=== PATIENT | female | born 1980 | race Caucasian/White ===

== ENCOUNTER 2019-05-28 18:48 | Emergency (ER) | payer BC, OTHER ==
[~2019-05-28] VITALS: Ht 162.6 cm; Wt 77.5 kg
[~2019-05-28 18:48] MED LIST: CLIN300C PO; MAPA500T17 PO; NICO4LOZ8 PO
[2019-05-28 18:49] VITALS: BP 138/78
[2019-05-28] MEDS ORDERED: ALEV220T22 PO (18:56)
[2019-05-28] MEDS ORDERED: IBUP80TA PO (19:24)
[2019-05-28] MEDS ORDERED: ACETAMINOPHEN 325 MG TAB PO ONE (19:30)
--- NOTE | 2019-05-28 19:39 | REP ---
Clinical: Trauma. Technique: AP, lateral, bilateral oblique views of the left ankle. Findings: Diffuse soft tissue swelling is appreciated. No obvious acute fracture dislocation. Ankle mortise intact. Lateral view demonstrates moderate calcaneal heal spur. Impression: Soft-tissue swelling. No obvious acute fracture or dislocation. If the patient remains symptomatic consider reevaluation in 3-5 days. Electronically Signed by Roland Small MD 05/28/2019 07:30 P
== END 2019-05-28 19:37 | disposition home or self-care (01) ==
LOC: M ED 18:48
DX: S93.402A Sprain of unspecified ligament of left ankle, initial encounter (principal); V00.181A Fall from other rolling-type pedestrian conveyance, initial encounter; Y92.009 Unspecified place in unspecified non-institutional (private) residence as the place of occurrence of the external cause; Y93.9 Activity, unspecified; G89.29 Other chronic pain; M54.9 Dorsalgia, unspecified; Z79.899 Other long term (current) drug therapy

== ENCOUNTER → 2021-07-07 | Outpatient (CLI) | payer BC ==
[~2021-07-07] MED LIST changes: +ALEV220T22 PO; +IBUP80TA PO
[2021-07-07 13:19] LABS: BASO # 0.1 10^3/uL (0.0-0.2); BASO % 1.4 % (0.0-1.0); EOS # 0.1 10^3/uL (0.0-0.5); EOS % 2.5 % (0.0-3.0); HEMOGLOBIN 10.4 g/dl (12.0-15.5); LYMPH # 0.9 10^3/uL (1.5-5.0); LYMPH % 19.9 % (24.0-44.0); MEAN CORPUSCULAR HEMOGLOBIN 23.1 pg (27.0-33.0); MEAN CORPUSCULAR HGB CONC 30.6 g/dl (32.0-36.5); MEAN CORPUSCULAR VOLUME 75.4 fl (80.0-96.0); MONO # 0.4 10^3/uL (0.0-0.8); MONO % 9.9 % (2.0-8.0); NEUTROPHILS # 2.9 10^3/uL (1.5-8.5); NEUTROPHILS % 66.1 % (36.0-66.0); PLATELET COUNT, AUTOMATED 316 10^3/uL (150-450); RED BLOOD COUNT 4.51 10^6/uL (4.00-5.40); WHITE BLOOD COUNT 4.4 10^3/uL (4.0-10.0)
[2021-07-07 13:40] LABS: HEMOGLOBIN A1c 5.2 %
[2021-07-07 13:58] LABS: ALBUMIN 3.5 GM/DL (3.2-5.2); ALT/SGPT 61 U/L (12-78); BILIRUBIN,TOTAL 0.3 MG/DL (0.2-1.0); BLOOD UREA NITROGEN 4 MG/DL (7-18); CALCIUM LEVEL 8.9 MG/DL (8.5-10.1); CARBON DIOXIDE LEVEL 28 MEQ/L (21-32); CHLORIDE LEVEL 105 MEQ/L (98-107); CHOLESTEROL LEVEL 214 MG/DL (<200); CHOLESTEROL RISK RATIO 2.038 (<5); CREATININE FOR GFR 0.73 MG/DL (0.55-1.30); FREE T4 0.85 NG/DL (0.76-1.46); GLOMERULAR FILTRATION RATE > 60.0 (>60); GLUCOSE, FASTING 83 MG/DL (70-100); HDL CHOLESTEROL 105 MG/DL (>40); LDL CHOLESTEROL 89 MG/DL (<100); NON-HDL-C 109 MG/DL; POTASSIUM SERUM 3.9 MEQ/L (3.5-5.1); SODIUM LEVEL 139 MEQ/L (136-145); TOTAL PROTEIN 7.9 GM/DL (6.4-8.2); TRIGLYCERIDES LEVEL 102 MG/DL (<150)
== END ==
LOC: M PLALAB 10:18
PROVIDERS: ATTEND Student in an Organized Health Care Education/Training Program
DX: Z13.1 Encounter for screening for diabetes mellitus (principal); R53.83 Other fatigue; Z79.899 Other long term (current) drug therapy

== ENCOUNTER → 2022-04-26 | Outpatient (CLI) | payer BC ==
[2022-04-26 12:35] LABS: BASO # 0.1 10^3/uL (0.0-0.2); BASO % 1.2 % (0.0-1.0); EOS # 0.2 10^3/uL (0.0-0.5); EOS % 4.3 % (0.0-3.0); HEMATOCRIT 34.7 % (36.0-47.0); LYMPH % 18.6 % (24.0-44.0); MEAN CORPUSCULAR HEMOGLOBIN 21.5 pg (27.0-33.0); MEAN CORPUSCULAR HGB CONC 28.8 g/dl (32.0-36.5); MEAN CORPUSCULAR VOLUME 74.6 fl (80.0-96.0); MONO # 0.6 10^3/uL (0.0-0.8); MONO % 12.4 % (2.0-8.0); NEUTROPHILS # 3.3 10^3/uL (1.5-8.5); NEUTROPHILS % 63.3 % (36.0-66.0); PLATELET COUNT, AUTOMATED 296 10^3/uL (150-450); RED BLOOD COUNT 4.65 10^6/uL (4.00-5.40); WHITE BLOOD COUNT 5.2 10^3/uL (4.0-10.0)
[2022-04-26 12:59] LABS: FERRITIN 11.4 NG/ML (7.3-270.7); PERCENT SATURATION 2.6 % (13.2-45.0)
== END ==
LOC: M LAB 12:03
PROVIDERS: ATTEND Student in an Organized Health Care Education/Training Program
DX: D50.9 Iron deficiency anemia, unspecified (principal)

== ENCOUNTER → 2022-10-02 | Outpatient (CLI) | payer BC, OTHER | LOC: M SOG 09:32 | PROVIDERS: ATTEND Physician Assistant | DX: S82.142A Displaced bicondylar fracture of left tibia, initial encounter for closed fracture (principal); S83.231A Complex tear of medial meniscus, current injury, right knee, initial encounter ==

== ENCOUNTER → 2022-10-05 | Outpatient (CLI) | payer MEDICAID | LOC: M OUTALCOH 09:27 | PROVIDERS: ATTEND Psychiatry & Neurology Psychiatry | DX: F10.10 Alcohol abuse, uncomplicated (principal) ==

== ENCOUNTER → 2022-11-01 | Outpatient (RCR) | payer MEDICAID | LOC: M OUTALCOH 10-13 09:57 | PROVIDERS: ATTEND Psychiatry & Neurology Psychiatry | DX: F10.20 Alcohol dependence, uncomplicated (principal); F12.20 Cannabis dependence, uncomplicated ==

== ENCOUNTER → 2022-12-01 | Outpatient (RCR) | payer MEDICAID | LOC: M OUTALCOH 11-08 14:43 | PROVIDERS: ATTEND Psychiatry & Neurology Psychiatry | DX: F10.20 Alcohol dependence, uncomplicated (principal); F12.10 Cannabis abuse, uncomplicated ==

== ENCOUNTER 2022-12-04 13:37 | Outpatient (RCR) | payer MEDICAID | END 2023-01-01 | LOC: M OUTALCOH 13:37 | PROVIDERS: ATTEND Psychiatry & Neurology Psychiatry | DX: F10.20 Alcohol dependence, uncomplicated (principal); F12.10 Cannabis abuse, uncomplicated ==

== ENCOUNTER → 2024-04-04 | Outpatient (CLI) | payer OTHER ==
[2024-04-04 18:30] LABS: THYROID STIMULATING HORMONE 3.272 uIU/ML (0.55-4.78)
[2024-04-04 18:31] LABS: FREE T4 1.16 NG/DL (0.89-1.76)
== END ==
LOC: M PLALAB 15:40
PROVIDERS: ATTEND Obstetrics & Gynecology Obstetrics
DX: N93.9 Abnormal uterine and vaginal bleeding, unspecified (principal)

== ENCOUNTER 2024-08-14 08:11 | Inpatient (IN) | payer MEDICAID, OTHER ==
[~2024-08-14] VITALS: Ht 157.5 cm; Wt 44.7 kg
[2024-08-14] MEDS ORDERED: AMOX875T2 PO (08:24)
[2024-08-14 10:10] LABS: HEMATOCRIT 29.6 % (36.0-47.0); HEMOGLOBIN 9.3 g/dl (12.0-15.5); MEAN CORPUSCULAR HEMOGLOBIN 23.2 pg (27.0-33.0); MEAN CORPUSCULAR HGB CONC 31.4 g/dl (32.0-36.5); MEAN CORPUSCULAR VOLUME 73.8 fl (80.0-96.0); PLATELET COUNT, AUTOMATED 516 10^3/uL (150-450); RED BLOOD COUNT 4.01 10^6/uL (4.00-5.40); WHITE BLOOD COUNT 13.7 10^3/uL (4.0-10.0)
[2024-08-14] MEDS: KETOROLAC 30 MG/ML 1ML VIAL IV ONE (10:15)
[2024-08-14 10:38] LABS: AMPHETAMINES LEVEL URINE NEGATIVE (NEGATIVE); BARBITURATES URINE NEGATIVE (NEGATIVE); BENZODIAZEPINES URINE NEGATIVE (NEGATIVE); COCAINE METABOLITE URINE NEGATIVE (NEGATIVE); METHADONE URINE NEGATIVE (NEGATIVE); OPIATES URINE NEGATIVE (NEGATIVE); PHENCYCLIDINE URINE NEGATIVE (NEGATIVE)
[2024-08-14 10:40] LABS: ETHYL ALCOHOL (ETHANOL) 0.004 % (0.000-0.010)
[2024-08-14 10:42] LABS: CANNABINOIDS URINE POSITIVE (NEGATIVE)
[2024-08-14 10:42] LABS: ALBUMIN 3.8 G/DL (3.2-5.2); ALKALINE PHOSPHATASE 60 U/L (35-104); ALT/SGPT 12 U/L (7.0-40); AST/SGOT 14 U/L (<34); BILIRUBIN,DIRECT 0.2 MG/DL (<0.4); BILIRUBIN,TOTAL 0.7 MG/DL (0.3-1.2); BLOOD UREA NITROGEN 13 MG/DL (9-23); CALCIUM LEVEL 9.2 MG/DL (8.5-10.1); CARBON DIOXIDE LEVEL 22 MMOL/L (20-31); CHLORIDE LEVEL 101 MMOL/L (98-107); GLOMERULAR FILTRATION RATE > 60.0 (>58); GLUCOSE, FASTING 145 MG/DL (60-100); POTASSIUM SERUM 3.7 MMOL/L (3.5-5.1); SALICYLATE LEVEL < 3.0 MG/DL (<30); SODIUM LEVEL 136 MMOL/L (136-145); TOTAL PROTEIN 7.7 G/DL (5.7-8.2)
[2024-08-14 10:44] LABS: THYROID STIMULATING HORMONE 1.064 uIU/ML (0.55-4.78)
[2024-08-14 10:49] LABS: HCG, SERUM QUALITATIVE NEGATIVE (NEGATIVE)
[2024-08-14] MEDS: PIPERACILLIN/TAZOBACTAM SOD 3.375 GM in DEXTROSE 5% (D5W) ADV/MINI-BAG 50 ML IV ONE (12:56)
[2024-08-14] MEDS ORDERED: HYDR-3363 PO (13:15)
[2024-08-14] MEDS ORDERED: HOME MED LIST COMPLETE! XX SCH (13:45)
[2024-08-14] MEDS ORDERED: MOM 30ML SUSPENSION UDC PO PRN (18:40)
[2024-08-14] MEDS ORDERED: MAALOX 30 ML SUSP *UDC PO PRN (18:40)
[2024-08-14] MEDS ORDERED: traZODone 50 MG TAB PO PRN (18:40)
[2024-08-14 18:47] VITALS: BP 131/73; TEMP 97.6; O2SAT 100
[2024-08-14] MEDS: IBUPROFEN 400MG TAB PO PRN (19:00)
[2024-08-14] MEDS ORDERED: AUGMENTIN 500MG TAB PO SCH (21:00)
[2024-08-14] MEDS: KETOROLAC TROMETHAMINE 10 MG TAB PO ONE (21:37)
[2024-08-14] MEDS: AUGMENTIN 500MG TAB PO SCH (21:37)
[2024-08-15 07:00] VITALS: BP 110/64; TEMP 97.1; O2SAT 100
[2024-08-15] MEDS: NICOTINE 21MG/24HR 1 EA TRANSDERMAL TD SCH (08:35)
[2024-08-15] MEDS: diphenhydrAMINE 25MG CAP PO PRN (08:35)
[2024-08-15] MEDS: ACETAMINOPHEN 325 MG TAB PO PRN (11:26)
[2024-08-15] MEDS ORDERED: KETOROLAC 30 MG/ML 1ML VIAL IV PRN (16:15)
[2024-08-15 16:49] VITALS: BP 108/61; TEMP 98.2; O2SAT 98
[2024-08-15] MEDS: PRAZOSIN 1 MG CAP PO SCH (20:46)
[2024-08-15] MEDS: SERTRALINE HCL 25 MG TABLET PO SCH (20:46)
[2024-08-15] MEDS: KETOROLAC TROMETHAMINE 10 MG TAB PO PRN (20:46)
[2024-08-16 03:46] VITALS: BP 88/53; TEMP 99.6; O2SAT 98
[2024-08-16] MEDS ORDERED: ONDANSETRON 4MG ORAL DISINTEGRATING TAB PO PRN (03:50)
[2024-08-16 04:33] LABS: BASO # 0.1 10^3/uL (0.0-0.2); BASO % 0.7 % (0.0-1.0); EOS # 0.2 10^3/uL (0.0-0.5); EOS % 1.7 % (0.0-3.0); HEMATOCRIT 30.1 % (36.0-47.0); HEMOGLOBIN 9.4 g/dl (12.0-15.5); LYMPH # 1.6 10^3/uL (1.5-5.0); LYMPH % 17.9 % (24.0-44.0); MEAN CORPUSCULAR HGB CONC 31.2 g/dl (32.0-36.5); MEAN CORPUSCULAR VOLUME 73.6 fl (80.0-96.0); MONO % 11.3 % (2.0-8.0); NEUTROPHILS # 6.1 10^3/uL (1.5-8.5); NEUTROPHILS % 68.1 % (36.0-66.0); PLATELET COUNT, AUTOMATED 509 10^3/uL (150-450); RED BLOOD COUNT 4.09 10^6/uL (4.00-5.40)
[2024-08-16 06:37] VITALS: BP 122/68; TEMP 96.9; O2SAT 99
[2024-08-16] MEDS: LACTOBACILLUS ACIDOPHILUS CAP (BACID) PO SCH (08:15)
[2024-08-16 15:31] VITALS: BP 132/72; TEMP 98; O2SAT 100
[2024-08-16 20:39] VITALS: BP 132/72
[2024-08-16] MEDS: SERTRALINE HCL 50 MG TAB PO SCH (20:39)
[2024-08-17 06:51] VITALS: BP 138/79; TEMP 97.4; O2SAT 98
[2024-08-17] MEDS ORDERED: AMOX875T2 PO (09:19)
[2024-08-18] MEDS ORDERED: HYDR-3363 PO (09:30)
[2024-08-18] MEDS ORDERED: TRAZ1TAB12 PO (09:30)
== END 2024-08-17 08:00 | disposition still patient (30) | DRG 755 ==
LOC: M ED 08:11 → M ED INP 17:36 → M PSY 18:09 → UNDODISIN 08-17 07:49
PROVIDERS: ADMIT Psychiatry & Neurology Psychiatry; ATTEND Psychiatry & Neurology Psychiatry
DX: F43.10 Post-traumatic stress disorder, unspecified (principal); F41.9 Anxiety disorder, unspecified; F10.10 Alcohol abuse, uncomplicated; N75.0 Cyst of Bartholin's gland; L40.9 Psoriasis, unspecified; F17.290 Nicotine dependence, other tobacco product, uncomplicated

== ENCOUNTER 2024-08-17 10:59 | Inpatient (IN) | payer OTHER ==
[~2024-08-17] VITALS: Ht 157.5 cm; Wt 44.7 kg
[~2024-08-17 10:59] MED LIST changes: +AMOX875T2 PO; +HYDR-3363 PO
[2024-08-17] MEDS ORDERED: diphenhydrAMINE 25MG CAP PO PRN (11:10)
[2024-08-17] MEDS ORDERED: MOM 30ML SUSPENSION UDC PO PRN (11:10)
[2024-08-17] MEDS: NICOTINE 21MG/24HR 1 EA TRANSDERMAL TD PRN (12:17)
[2024-08-17] MEDS: ACETAMINOPHEN 325 MG TAB PO PRN (12:27)
[2024-08-17 12:47] VITALS: BP 116/61; TEMP 98; O2SAT 97
[2024-08-17 15:36] VITALS: BP 122/63; TEMP 97.7; O2SAT 98
[2024-08-17] MEDS: IBUPROFEN 400MG TAB PO PRN (16:59)
[2024-08-17] MEDS: traZODone 50 MG TAB PO PRN (22:15)
[2024-08-18 06:59] VITALS: BP 100/62; TEMP 98; O2SAT 96
[2024-08-18] MEDS ORDERED: HOME MED LIST COMPLETE! XX SCH (09:20)
[2024-08-18] MEDS: OLANZapine 5 MG TAB PO PRN (09:26)
[2024-08-18] MEDS ORDERED: TRAZ1TAB12 PO (09:30)
[2024-08-18] MEDS ORDERED: HYDR-3363 PO (09:30)
[2024-08-18 17:26] VITALS: BP 130/64; TEMP 98; O2SAT 100
[2024-08-18] MEDS: AUGMENTIN 875 MG TAB PO SCH (21:49)
[2024-08-18] MEDS: SERTRALINE HCL 50 MG TAB PO SCH (21:49)
[2024-08-18] MEDS: PRAZOSIN 1 MG CAP PO SCH (21:58)
[2024-08-19 07:11] VITALS: BP 115/61; TEMP 97.4; O2SAT 99
[2024-08-19 17:12] VITALS: BP 128/79; TEMP 98; O2SAT 98
[2024-08-20 06:35] VITALS: BP 125/60; TEMP 97.1; O2SAT 98
[2024-08-20 15:04] VITALS: BP 115/74; TEMP 98.5; O2SAT 99
[2024-08-21 06:29] VITALS: BP 109/59; TEMP 97.5; O2SAT 97
[2024-08-21 16:29] VITALS: BP 110/73; TEMP 97.6; O2SAT 99
[2024-08-21 20:23] VITALS: BP 126/81
[2024-08-22] MEDS: MAALOX 30 ML SUSP *UDC PO PRN (00:55)
[2024-08-22 06:42] VITALS: BP 127/58; TEMP 97.6; O2SAT 99
[2024-08-22] MEDS ORDERED: PRAZ1CAP PO (09:22)
[2024-08-22] MEDS ORDERED: TRAZ1TAB12 PO (09:22)
[2024-08-22] MEDS ORDERED: SERT50TA29 PO (09:22)
[2024-08-22] MEDS ORDERED: HYDR-3363 PO (09:22)
[2024-08-22] MEDS ORDERED: AMOX875T2 PO (09:22)
[2024-08-22] MEDS ORDERED: HYDR-643 PO (09:22)
[2024-08-22] MEDS ORDERED: NICO21PAT TD (09:22)
== END 2024-08-22 14:11 | disposition home or self-care (01) | DRG 755 ==
LOC: M PSY 11:39
PROVIDERS: ADMIT Psychiatry & Neurology Psychiatry; ATTEND Psychiatry & Neurology Psychiatry
DX: F43.10 Post-traumatic stress disorder, unspecified (principal); F41.9 Anxiety disorder, unspecified; F10.10 Alcohol abuse, uncomplicated; F17.290 Nicotine dependence, other tobacco product, uncomplicated; Z79.899 Other long term (current) drug therapy

== ENCOUNTER 2024-08-28 08:37 | Inpatient (IN) | payer OTHER ==
[~2024-08-28] VITALS: Ht 157.5 cm; Wt 50.7 kg
[~2024-08-28 08:37] MED LIST changes: +HYDR-643 PO; +NICO21PAT TD; +PRAZ1CAP PO; +SERT50TA29 PO; +TRAZ1TAB12 PO
[2024-08-28] MEDS ORDERED: ACET650T61 PO (08:48)
[2024-08-28 10:09] LABS: BASO # 0.1 10^3/uL (0.0-0.2); BASO % 0.4 % (0.0-1.0); EOS % 0.1 % (0.0-3.0); HEMATOCRIT 34.1 % (36.0-47.0); HEMOGLOBIN 10.6 g/dl (12.0-15.5); LYMPH # 1.8 10^3/uL (1.5-5.0); LYMPH % 8.9 % (24.0-44.0); MEAN CORPUSCULAR HGB CONC 31.1 g/dl (32.0-36.5); MEAN CORPUSCULAR VOLUME 74.1 fl (80.0-96.0); MONO # 0.9 10^3/uL (0.0-0.8); MONO % 4.7 % (2.0-8.0); NEUTROPHILS # 16.8 10^3/uL (1.5-8.5); NEUTROPHILS % 85.4 % (36.0-66.0); PLATELET COUNT, AUTOMATED 423 10^3/uL (150-450); WHITE BLOOD COUNT 19.6 10^3/uL (4.0-10.0)
[2024-08-28 10:13] LABS: KETONE, URINE AUTO RFX NEGATIVE (NEGATIVE); LEUKOCYTE ESTERASE UR AUTO RFX NEGATIVE (NEGATIVE); MUCUS, URINE RFX SMALL (NEGATIVE); NITRITE, URINE AUTO RFX NEGATIVE (NEGATIVE); RBC, URINE AUTO RFX 0 /HPF (0-3); SQUAM EPITHELIAL CELL UR AURFX 4 /HPF (0-6); WBC, URINE AUTO RFX 0 /HPF (0-3)
[2024-08-28 10:31] LABS: LIPASE 28 U/L (12-53)
[2024-08-28 10:33] LABS: ALBUMIN 3.5 G/DL (3.2-5.2); ALKALINE PHOSPHATASE 59 U/L (35-104); ALT/SGPT 15 U/L (7.0-40); AST/SGOT 11 U/L (<34); BILIRUBIN,DIRECT 0.1 MG/DL (<0.4); BILIRUBIN,TOTAL 0.4 MG/DL (0.3-1.2); BLOOD UREA NITROGEN 9 MG/DL (9-23); CALCIUM LEVEL 9.1 MG/DL (8.5-10.1); CARBON DIOXIDE LEVEL 28 MMOL/L (20-31); CHLORIDE LEVEL 104 MMOL/L (98-107); CREATININE FOR GFR 0.55 MG/DL (0.55-1.30); GLOMERULAR FILTRATION RATE > 60.0 (>58); GLUCOSE, FASTING 110 MG/DL (60-100); POTASSIUM SERUM 4.4 MMOL/L (3.5-5.1); SODIUM LEVEL 138 MMOL/L (136-145); TOTAL PROTEIN 7.5 G/DL (5.7-8.2)
[2024-08-28 11:21] LABS: HCG, SERUM QUALITATIVE NEGATIVE (NEGATIVE)
[2024-08-28] MEDS: NS (Normal Saline) 0.9% 1,000 ML IV ONE (12:13)
[2024-08-28] MEDS ORDERED: ISOVUE-370 76% 100ML VIAL As Ordered ONE (12:32)
[2024-08-28] MEDS: GASTROGRAFIN SOLUTION 30ML PO SCH (12:46)
[2024-08-28] MEDS: PIPERACILLIN/TAZOBACTAM SOD 3.375 GM in DEXTROSE 5% (D5W) ADV/MINI-BAG 50 ML IV ONE (15:46)
[2024-08-28] MEDS ORDERED: ZOLO50TA PO (16:23)
[2024-08-28] MEDS ORDERED: HYDR-643 PO (16:23)
[2024-08-28] MEDS ORDERED: TRAZ-257 PO (16:23)
[2024-08-28] MEDS ORDERED: HOME MED LIST COMPLETE! XX SCH (16:25)
[2024-08-28] MEDS ORDERED: KETOROLAC 30 MG/ML 1ML VIAL As Ordered ONE (17:20)
[2024-08-28] MEDS ORDERED: dexmedeTOMIDine (4MCG/ML)200MCG/50ML BTL (PRECEDEX) As Ordered ONE (17:20)
[2024-08-28] MEDS ORDERED: LIDOCAINE 2% 100MG/5ML SDV (FOR ANES.) As Ordered ONE (17:20)
[2024-08-28] MEDS ORDERED: ACETAMINOPHEN 1000MG/100ML IV BAG As Ordered ONE (17:20)
[2024-08-28] MEDS ORDERED: fentaNYL 100 MCG/2 ML INJECTION As Ordered ONE (17:20)
[2024-08-28] MEDS ORDERED: ROCURONIUM BROMIDE 50MG/5ML VIAL As Ordered ONE (17:21)
[2024-08-28] MEDS ORDERED: SUGAMMADEX SODIUM 500 MG/5 ML VIAL (BRIDION) As Ordered ONE (17:21)
[2024-08-28] MEDS ORDERED: propofoL 200 MG/20 ML VIAL As Ordered ONE (17:21)
[2024-08-28] MEDS ORDERED: MIDAZOLAM INJ 2MG/2ML VIAL As Ordered ONE (17:21)
[2024-08-28] MEDS ORDERED: ONDANSETRON 4MG 2ML VIAL As Ordered ONE (17:21)
[2024-08-28] MEDS ORDERED: METOCLOPRAMIDE INJ 10MG/2ML VIAL As Ordered ONE (17:21)
[2024-08-28] MEDS ORDERED: oxyCODONE 5MG TAB PO PRN (18:00)
[2024-08-28] MEDS ORDERED: fentaNYL 100 MCG/2 ML INJECTION IV PRN (18:00)
[2024-08-28] MEDS ORDERED: MORPHINE 2 MG/ML 1ML VIAL IV PRN ×3 (18:00)
[2024-08-28] MEDS ORDERED: MORPHINE 4 MG/ML 1ML VIAL IV PRN (18:00)
[2024-08-28] MEDS ORDERED: ONDANSETRON 4MG 2ML VIAL IV PRN ×2 (18:00)
[2024-08-28 20:42] VITALS: BP 94/61; TEMP 98.1; O2SAT 100
[2024-08-28] MEDS: NS (Normal Saline) 0.9% 1,000 ML IV SCH (20:48)
[2024-08-28 21:06] VITALS: BP 97/63; TEMP 98.3; O2SAT 100
[2024-08-28] MEDS: PIPERACILLIN/TAZOBACTAM SOD 3.375 GM in DEXTROSE 5% (D5W) ADV/MINI-BAG 50 ML IV SCH (22:50)
[2024-08-28 22:59] VITALS: BP 96/58; TEMP 98.3; O2SAT 100
[2024-08-29 00:01] VITALS: BP 94/58; TEMP 98.2; O2SAT 100
[2024-08-29] MEDS: KETOROLAC 30 MG/ML 1ML VIAL IV SCH (00:25)
[2024-08-29 01:01] VITALS: BP 101/62; TEMP 97.9; O2SAT 100
[2024-08-29] MEDS: traZODone 100 MG TAB PO PRN (01:28)
[2024-08-29 02:00] VITALS: BP 98/63; TEMP 98.1; O2SAT 98
[2024-08-29 04:46] VITALS: BP 103/54; TEMP 98.1; O2SAT 99
[2024-08-29] MEDS: NICOTINE 21MG/24HR 1 EA TRANSDERMAL TD SCH (08:13)
[2024-08-29 08:14] VITALS: BP 97/54; TEMP 97.7; O2SAT 100
[2024-08-29] MEDS: SERTRALINE HCL 50 MG TAB PO SCH (09:14)
[2024-08-29] MEDS: PANTOPRAZOLE 40MG VIAL IV SCH (09:14)
[2024-08-29 12:15] VITALS: BP 107/61; TEMP 98; O2SAT 99
== END 2024-08-29 14:47 | disposition home or self-care (01) | DRG 225 ==
LOC: M ED 08:37 → M SDC 15:30 → M RR INP 18:00 → M MS4PR 20:32
PROVIDERS: ADMIT Surgery; ATTEND Surgery
PROC: 0DTJ4ZZ Resection of Appendix, Percutaneous Endoscopic Approach (ICD-10-PCS; principal; 2024-08-28 17:00)
DX: K35.80 Unspecified acute appendicitis (principal)

== ENCOUNTER 2024-09-10 10:00 | Emergency (ER) | payer MEDICAID, OTHER ==
[~2024-09-10] VITALS: Ht 157.5 cm; Wt 49.8 kg
[~2024-09-10 10:00] MED LIST changes: +ACET650T61 PO; +TRAZ-257 PO; +ZOLO50TA PO
[2024-09-10 12:02] LABS: BASO # 0.1 10^3/uL (0.0-0.2); BASO % 1.3 % (0.0-1.0); EOS # 0.1 10^3/uL (0.0-0.5); EOS % 1.4 % (0.0-3.0); HEMATOCRIT 30.9 % (36.0-47.0); HEMOGLOBIN 9.5 g/dl (12.0-15.5); LYMPH # 1.3 10^3/uL (1.5-5.0); LYMPH % 23.1 % (24.0-44.0); MEAN CORPUSCULAR HEMOGLOBIN 22.8 pg (27.0-33.0); MEAN CORPUSCULAR HGB CONC 30.7 g/dl (32.0-36.5); MEAN CORPUSCULAR VOLUME 74.1 fl (80.0-96.0); MONO # 0.6 10^3/uL (0.0-0.8); MONO % 11.1 % (2.0-8.0); NEUTROPHILS # 3.5 10^3/uL (1.5-8.5); NEUTROPHILS % 62.7 % (36.0-66.0); PLATELET COUNT, AUTOMATED 478 10^3/uL (150-450); RED BLOOD COUNT 4.17 10^6/uL (4.00-5.40); WHITE BLOOD COUNT 5.6 10^3/uL (4.0-10.0)
[2024-09-10 12:19] LABS: HCG, SERUM QUALITATIVE NEGATIVE (NEGATIVE)
[2024-09-10 12:26] LABS: ALKALINE PHOSPHATASE 58 U/L (35-104); ALT/SGPT 18 U/L (7.0-40); AST/SGOT 9 U/L (<34); BILIRUBIN,TOTAL 0.4 MG/DL (0.3-1.2); BLOOD UREA NITROGEN 10 MG/DL (9-23); CALCIUM LEVEL 9.9 MG/DL (8.5-10.1); CARBON DIOXIDE LEVEL 28 MMOL/L (20-31); CHLORIDE LEVEL 105 MMOL/L (98-107); CREATININE FOR GFR 0.57 MG/DL (0.55-1.30); GLOMERULAR FILTRATION RATE > 90.0 (>58); GLUCOSE, FASTING 96 MG/DL (60-100); POTASSIUM SERUM 4.2 MMOL/L (3.5-5.1); SODIUM LEVEL 141 MMOL/L (136-145); TOTAL PROTEIN 7.8 G/DL (5.7-8.2)
[2024-09-10 13:29] VITALS: BP 128/81; TEMP 97.1; O2SAT 100
== END 2024-09-10 13:56 | disposition home or self-care (01) ==
LOC: M ED 10:00
DX: R42 Dizziness and giddiness (principal); F10.10 Alcohol abuse, uncomplicated; F43.10 Post-traumatic stress disorder, unspecified; Z79.899 Other long term (current) drug therapy

== ENCOUNTER 2024-10-08 10:33 | Inpatient (IN) | payer OTHER ==
[~2024-10-08] VITALS: Ht 157.5 cm; Wt 47.1 kg
[2024-10-08 11:38] LABS: HEMATOCRIT 31.9 % (36.0-47.0); HEMOGLOBIN 9.7 g/dl (12.0-15.5); MEAN CORPUSCULAR HEMOGLOBIN 22.1 pg (27.0-33.0); MEAN CORPUSCULAR HGB CONC 30.4 g/dl (32.0-36.5); MEAN CORPUSCULAR VOLUME 72.8 fl (80.0-96.0); PLATELET COUNT, AUTOMATED 494 10^3/uL (150-450); RED BLOOD COUNT 4.38 10^6/uL (4.00-5.40); WHITE BLOOD COUNT 8.2 10^3/uL (4.0-10.0)
[2024-10-08 11:59] LABS: AMPHETAMINES LEVEL URINE NEGATIVE (NEGATIVE); BARBITURATES URINE NEGATIVE (NEGATIVE); BENZODIAZEPINES URINE NEGATIVE (NEGATIVE); COCAINE METABOLITE URINE NEGATIVE (NEGATIVE); METHADONE URINE NEGATIVE (NEGATIVE); OPIATES URINE NEGATIVE (NEGATIVE); PHENCYCLIDINE URINE NEGATIVE (NEGATIVE)
[2024-10-08] MEDS: NICOTINE 21MG/24HR 1 EA TRANSDERMAL TD ONE (11:59)
[2024-10-08 12:01] LABS: CANNABINOIDS URINE POSITIVE (NEGATIVE); ETHYL ALCOHOL (ETHANOL) < 0.003 % (0.000-0.010)
[2024-10-08 12:03] LABS: ALBUMIN 4.5 G/DL (3.2-5.2); ALKALINE PHOSPHATASE 56 U/L (35-104); ALT/SGPT 14 U/L (7.0-40); AST/SGOT 15 U/L (<34); BILIRUBIN,DIRECT 0.2 MG/DL (<0.4); BILIRUBIN,TOTAL 0.8 MG/DL (0.3-1.2); BLOOD UREA NITROGEN 10 MG/DL (9-23); CALCIUM LEVEL 9.9 MG/DL (8.5-10.1); CARBON DIOXIDE LEVEL 26 MMOL/L (20-31); CHLORIDE LEVEL 100 MMOL/L (98-107); CREATININE FOR GFR 0.58 MG/DL (0.55-1.30); GLOMERULAR FILTRATION RATE > 90.0 (>58); GLUCOSE, FASTING 89 MG/DL (60-100); POTASSIUM SERUM 3.8 MMOL/L (3.5-5.1); SALICYLATE LEVEL < 3.0 MG/DL (<30); SODIUM LEVEL 137 MMOL/L (136-145); TOTAL PROTEIN 8.3 G/DL (5.7-8.2)
[2024-10-08] MEDS ORDERED: HOME MED LIST COMPLETE! XX SCH (13:50)
[2024-10-08] MEDS ORDERED: NICO21DI6 TD (13:52)
[2024-10-08 13:58] LABS: HCG, SERUM QUALITATIVE NEGATIVE (NEGATIVE)
[2024-10-08 15:27] VITALS: BP 135/80; TEMP 97.3; O2SAT 99
[2024-10-08] MEDS ORDERED: MAALOX 30 ML SUSP *UDC PO PRN (20:20)
[2024-10-08] MEDS ORDERED: traZODone 50 MG TAB PO PRN (20:20)
[2024-10-08] MEDS ORDERED: MOM 30ML SUSPENSION UDC PO PRN (20:20)
[2024-10-08] MEDS: ACETAMINOPHEN 325 MG TAB PO PRN (22:05)
[2024-10-09 06:30] VITALS: BP 118/78; TEMP 97.8; O2SAT 100
[2024-10-09] MEDS ORDERED: NICOTINE 21MG/24HR 1 EA TRANSDERMAL TD SCH (09:00)
[2024-10-09] MEDS: NICOTINE 21MG/24HR 1 EA TRANSDERMAL TD SCH (11:02)
[2024-10-09] MEDS: SERTRALINE HCL 50 MG TAB PO SCH (11:03)
[2024-10-09 15:34] VITALS: BP 133/72; TEMP 98.7; O2SAT 98
[2024-10-09] MEDS: traZODone 100 MG TAB PO PRN (22:43)
[2024-10-10 07:04] VITALS: BP 142/77; TEMP 97.7; O2SAT 99
[2024-10-10] MEDS: IBUPROFEN 400MG TAB PO PRN (07:32)
[2024-10-10] MEDS ORDERED: NICOTINE 21MG/24HR 1 EA TRANSDERMAL TD SCH (09:00)
[2024-10-10] MEDS ORDERED: SERTRALINE HCL 50 MG TAB PO SCH (09:00)
[2024-10-10 15:29] VITALS: BP 130/71; TEMP 96; O2SAT 99
[2024-10-11 15:51] VITALS: BP 107/62; TEMP 98; O2SAT 95
[2024-10-12 06:30] VITALS: BP 106/62; TEMP 97; O2SAT 99
[2024-10-12] MEDS: DIVALPROEX 250MG *ER* TAB PO SCH (14:25)
[2024-10-12] MEDS: DIVALPROEX 250MG TAB PO ONE (15:18)
[2024-10-12 15:56] VITALS: BP 111/61; TEMP 98.3; O2SAT 98
[2024-10-12] MEDS: DIVALPROEX 250MG TAB PO SCH (20:41)
[2024-10-12] MEDS: QUEtiapine FUMARATE 50MG TAB PO SCH (20:54)
[2024-10-12] MEDS ORDERED: traZODone 50 MG TAB PO PRN (21:00)
[2024-10-13 06:27] VITALS: BP 123/56; TEMP 97.3; O2SAT 99
[2024-10-13 14:48] VITALS: BP 109/55; TEMP 98; O2SAT 100
[2024-10-14 06:41] VITALS: BP 113/69; TEMP 97.5; O2SAT 99
[2024-10-14 15:52] VITALS: BP 114/61; TEMP 97.1; O2SAT 99
[2024-10-14] MEDS: DIVALPROEX 250MG TAB PO SCH (16:55)
[2024-10-15 06:35] VITALS: BP 141/74; TEMP 97.2; O2SAT 98
[2024-10-15] MEDS: FIORICET TAB PO PRN (08:15)
[2024-10-15 18:53] VITALS: BP 120/79; TEMP 97.2
[2024-10-16 06:26] VITALS: BP 128/74; TEMP 97.3; O2SAT 98
[2024-10-16 14:32] VITALS: BP 120/68; TEMP 98.1; O2SAT 99
[2024-10-16] MEDS: traZODone 50 MG TAB PO SCH (20:48)
[2024-10-16] MEDS: DIVALPROEX 250MG TAB PO SCH (20:48)
[2024-10-17 06:46] VITALS: BP 124/76; TEMP 98; O2SAT 98
[2024-10-17] MEDS ORDERED: traZODone 50 MG TAB PO PRN (12:25)
[2024-10-17 15:00] VITALS: BP 135/75; TEMP 97.2; O2SAT 100
[2024-10-17] MEDS: QUEtiapine FUMARATE 50MG TAB PO SCH (20:39)
[2024-10-18 06:31] VITALS: BP 116/60; TEMP 97.8; O2SAT 98
[2024-10-18 16:13] VITALS: BP 115/74; TEMP 97.6; O2SAT 100
[2024-10-19 07:05] VITALS: BP 115/56; TEMP 97.2; O2SAT 97
[2024-10-19 15:57] VITALS: BP 118/68; TEMP 98.2; O2SAT 99
[2024-10-20] MEDS: diphenhydrAMINE 25MG CAP PO PRN (05:24)
[2024-10-20 07:03] VITALS: BP 116/73; TEMP 97.1; O2SAT 99
[2024-10-20 17:30] VITALS: BP 127/75; TEMP 97.4; O2SAT 100
[2024-10-20] MEDS: QUEtiapine FUMARATE 100 MG TAB PO SCH (20:50)
[2024-10-21 06:34] VITALS: BP 120/67; TEMP 97.5; O2SAT 100
[2024-10-21 14:52] VITALS: BP 131/81; TEMP 97.3; O2SAT 100
[2024-10-22 06:42] VITALS: BP 147/87; TEMP 98.2; O2SAT 100
[2024-10-22 09:56] VITALS: BP 147/87; TEMP 98.2; O2SAT 100
[2024-10-22] MEDS ORDERED: ABIL1TAB11 PO (11:17)
[2024-10-22] MEDS ORDERED: QUET100T2 PO (11:17)
[2024-10-22] MEDS ORDERED: HYDR-4570 PO (11:17)
[2024-10-22] MEDS ORDERED: DEPA250T32 PO (11:17)
[2024-10-22] MEDS ORDERED: SERT50TA29 PO (11:17)
[2024-10-23] MEDS ORDERED: FIOR1CAP PO (13:15)
== END 2024-10-22 14:23 | disposition home or self-care (01) | DRG 751 ==
LOC: M ED 10:33 → M ED INP 13:41 → M PSY 15:44
PROVIDERS: ADMIT Psychiatry & Neurology Psychiatry; ATTEND Psychiatry & Neurology Neurology
DX: F33.3 Major depressive disorder, recurrent, severe with psychotic symptoms (principal); F41.1 Generalized anxiety disorder; F41.0 Panic disorder [episodic paroxysmal anxiety]; G43.909 Migraine, unspecified, not intractable, without status migrainosus; F43.10 Post-traumatic stress disorder, unspecified; F17.200 Nicotine dependence, unspecified, uncomplicated; Z79.899 Other long term (current) drug therapy

== ENCOUNTER 2024-11-01 12:24 | Inpatient (IN) | payer OTHER ==
[~2024-11-01] VITALS: Ht 157.5 cm; Wt 50.9 kg
[~2024-11-01 12:24] MED LIST changes: +ABIL1TAB11 PO; +DIVA-65 PO; +FIOR1CAP PO; +HYDR-3364 PO; +NICO21DI6 TD; +QUET100T2 PO
[2024-11-01 13:20] LABS: PLATELET COUNT, AUTOMATED 416 10^3/uL (150-450)
[2024-11-01] MEDS ORDERED: HYDR-643 PO (13:24)
[2024-11-01] MEDS ORDERED: RIZA10TA58 PO (13:24)
[2024-11-01] MEDS ORDERED: TOPA50TA8 PO (13:24)
[2024-11-01] MEDS ORDERED: DIVALPROEX 500 MG *ER* TAB PO ONE (13:30)
[2024-11-01 13:43] LABS: AMPHETAMINES LEVEL URINE NEGATIVE (NEGATIVE); BENZODIAZEPINES URINE NEGATIVE (NEGATIVE); COCAINE METABOLITE URINE NEGATIVE (NEGATIVE)
[2024-11-01 13:44] LABS: CANNABINOIDS URINE NEGATIVE (NEGATIVE); METHADONE URINE NEGATIVE (NEGATIVE); OPIATES URINE NEGATIVE (NEGATIVE); PHENCYCLIDINE URINE NEGATIVE (NEGATIVE)
[2024-11-01 13:46] LABS: ETHYL ALCOHOL (ETHANOL) < 0.003 % (0.000-0.010); VALPROIC ACID (DEPAKOTE) 21.3 UG/ML (50.0-100.0)
[2024-11-01 13:47] LABS: SALICYLATE LEVEL < 3.0 MG/DL (<30)
[2024-11-01 13:48] LABS: BARBITURATES URINE POSITIVE (NEGATIVE)
[2024-11-01] MEDS: DIVALPROEX 500 MG TAB PO ONE (13:48)
[2024-11-01] MEDS: RIZATRIPTAN MLT 10 MG TAB PO PRN (13:48)
[2024-11-01 13:52] LABS: ALT/SGPT 17 U/L (7.0-40); AST/SGOT 16 U/L (<34); CALCIUM LEVEL 9.3 MG/DL (8.5-10.1); CARBON DIOXIDE LEVEL 27 MMOL/L (20-31); CHLORIDE LEVEL 103 MMOL/L (98-107); CREATININE FOR GFR 0.56 MG/DL (0.55-1.30); GLOMERULAR FILTRATION RATE > 90.0 (>58); POTASSIUM SERUM 4.0 MMOL/L (3.5-5.1); SODIUM LEVEL 138 MMOL/L (136-145)
[2024-11-01] MEDS ORDERED: DIVA-41 PO (15:50)
[2024-11-01] MEDS ORDERED: ABIL1TAB11 PO (15:50)
[2024-11-01] MEDS ORDERED: QUET100T2 PO (15:51)
[2024-11-01] MEDS ORDERED: HOME MED LIST COMPLETE! XX SCH (15:55)
[2024-11-01] MEDS ORDERED: OLANZapine 5 MG TAB PO PRN (17:30)
[2024-11-01] MEDS ORDERED: MOM 30 ML SUSPENSION UDC PO PRN (17:30)
[2024-11-01] MEDS: IBUPROFEN 400 MG TAB PO PRN (20:42)
[2024-11-01] MEDS: DIVALPROEX 500 MG TAB PO SCH (21:00)
[2024-11-01] MEDS: TOPIRAMATE 25 MG TAB PO SCH (21:00)
[2024-11-01 22:00] VITALS: BP 140/88; TEMP 97.6; O2SAT 98
[2024-11-02 07:08] VITALS: BP 102/55; TEMP 98.2; O2SAT 98
[2024-11-02] MEDS: NICOTINE 14 MG/24 HR TRANSDERMAL TD SCH (08:19)
[2024-11-02] MEDS: SERTRALINE HCL 50 MG TAB PO SCH (08:20)
[2024-11-02 15:48] VITALS: BP 111/77; TEMP 97.5; O2SAT 100
[2024-11-02] MEDS: RIZATRIPTAN BENZOATE 10 MG TAB PO PRN (18:03)
[2024-11-02] MEDS: PILL CUTTER 1 EACH XX PRN (18:03)
[2024-11-02] MEDS: traZODone 50 MG TAB PO PRN (21:24)
[2024-11-03 06:55] VITALS: BP 112/60; TEMP 97.9; O2SAT 99
[2024-11-04 06:28] VITALS: BP 125/74; TEMP 97.7; O2SAT 100
[2024-11-04] MEDS: NICOTINE 21 MG/24 HR 1 EA TRANSDERMAL TD PRN (08:20)
[2024-11-04] MEDS: ACETAMINOPHEN 325 MG TAB PO PRN (12:43)
[2024-11-04 16:38] VITALS: BP 124/73; TEMP 97.5; O2SAT 99
[2024-11-05] MEDS: LORazepam 1 MG TAB PO PRN (09:00)
[2024-11-05 14:55] VITALS: BP 115/65; TEMP 97.2; O2SAT 100
[2024-11-05] MEDS: HALOPERIDOL 5 MG TAB PO ONE (15:49)
[2024-11-05] MEDS: traZODone 100 MG TAB PO SCH (21:00)
[2024-11-06 06:35] VITALS: BP 134/75; TEMP 97.6; O2SAT 100
[2024-11-06 15:15] VITALS: BP 136/72; TEMP 97.7; O2SAT 100
[2024-11-06] MEDS: HALOPERIDOL 5 MG TAB PO PRN (20:59)
[2024-11-07 06:55] VITALS: BP 102/55; TEMP 98; O2SAT 98
[2024-11-07] MEDS: NICOTINE POLACRILEX 2 MG GUM PO PRN (09:24)
[2024-11-07 15:10] VITALS: BP 105/58; TEMP 98; O2SAT 100
[2024-11-07] MEDS: DIVALPROEX 250 MG *ER* TAB PO SCH (21:19)
[2024-11-08 06:46] VITALS: BP 101/54; TEMP 97.6; O2SAT 100
[2024-11-08 14:40] VITALS: BP 100/58; TEMP 98.1; O2SAT 95
[2024-11-09 06:50] VITALS: BP 123/72; TEMP 97.5; O2SAT 97
[2024-11-09 15:09] VITALS: BP 109/56; TEMP 97.8; O2SAT 100
[2024-11-10 06:46] VITALS: BP 106/50; TEMP 97.8; O2SAT 98
[2024-11-10] MEDS: ARIPiprazole MONOHYDRATE 400 MG INJ (FREE PSY INPT ONLY) IM ONE (09:07)
[2024-11-10 15:10] VITALS: BP 103/57; TEMP 98.1; O2SAT 100
[2024-11-11 06:42] VITALS: BP 104/50; TEMP 97.4; O2SAT 100
[2024-11-11 15:22] VITALS: BP 88/50; TEMP 97.7; O2SAT 100
[2024-11-11] MEDS: TUBERCULIN PPD 5 UNITS/0.1 ML ID ONE (17:00)
[2024-11-12 06:36] VITALS: BP 93/51; TEMP 98.3; O2SAT 98
[2024-11-12] MEDS: **NOTE PATIENT COMMENT** MISC XX SCH (08:30)
[2024-11-12] MEDS: TUBERCULIN PPD 5 UNITS/0.1 ML ID ONE (09:59)
[2024-11-12] MEDS: BENZTROPINE 1 MG TAB PO ONE (11:00)
[2024-11-12] MEDS ORDERED: BENZTROPINE 0.5 MG TAB PO PRN (15:00)
[2024-11-12 16:43] VITALS: BP 86/47; TEMP 97.3; O2SAT 98
[2024-11-13 06:37] VITALS: BP 110/57; TEMP 97.9; O2SAT 98
[2024-11-13] MEDS: SERTRALINE 100 MG TAB PO SCH (08:17)
[2024-11-13] MEDS ORDERED: PPD DOCUMENTATION ENTRY MISC XX SCH (14:30)
[2024-11-13 15:43] VITALS: BP 99/56; TEMP 97.9; O2SAT 100
[2024-11-14 06:42] VITALS: BP 102/56; TEMP 97.3; O2SAT 98
[2024-11-14] MEDS: PPD DOCUMENTATION ENTRY MISC XX ONE (08:38)
[2024-11-14 12:30] VITALS: BP 102/56; TEMP 97.3; O2SAT 98
[2024-11-14 14:52] VITALS: BP 91/51; TEMP 97.4; O2SAT 100
[2024-11-15 06:54] VITALS: BP 90/52; TEMP 97.8; O2SAT 99
[2024-11-15 16:17] VITALS: BP 98/50; TEMP 97.8; O2SAT 99
[2024-11-16 06:35] VITALS: BP 101/57; TEMP 97.5; O2SAT 99
[2024-11-16 16:25] VITALS: BP 85/54; TEMP 97.9; O2SAT 99
[2024-11-17 06:23] VITALS: BP 98/54; TEMP 97.1; O2SAT 100
[2024-11-17] MEDS: BENZTROPINE 0.5 MG TAB PO SCH (10:50)
[2024-11-17 16:39] VITALS: BP 100/61; TEMP 97.6; O2SAT 99
[2024-11-18 06:51] VITALS: BP 90/53; TEMP 96.6; O2SAT 99
[2024-11-18 10:03] VITALS: BP 90/53; TEMP 96.6; O2SAT 99
[2024-11-18 15:42] VITALS: BP 91/51; TEMP 98.3; O2SAT 100
[2024-11-19 06:31] VITALS: BP 99/57; TEMP 97.1; O2SAT 97
[2024-11-19 15:36] VITALS: BP 97/56; TEMP 97.5; O2SAT 100
[2024-11-19] MEDS: traZODone 100 MG TAB PO SCH (20:49)
[2024-11-20 03:37] VITALS: BP 94/62
[2024-11-20 06:26] VITALS: BP 98/58; TEMP 97.2; O2SAT 99
[2024-11-20 16:34] VITALS: BP 101/56; TEMP 97.4; O2SAT 100
[2024-11-21 06:31] VITALS: BP 106/59; TEMP 97.2; O2SAT 99
[2024-11-21 11:49] VITALS: BP 106/59; TEMP 97.2; O2SAT 99
[2024-11-21 14:55] VITALS: BP 95/50; TEMP 97.9; O2SAT 98
[2024-11-22 06:24] VITALS: BP_SYST 82; BP_SYST 92; BP_DIAS 47; TEMP 97.5; O2SAT 100
[2024-11-22 15:31] VITALS: BP 90/56; TEMP 98; O2SAT 100
[2024-11-23 06:23] VITALS: BP 92/54; TEMP 97.2; O2SAT 100
[2024-11-23 15:00] VITALS: BP 82/56; TEMP 98; O2SAT 100
[2024-11-23 16:15] VITALS: BP 102/56; O2SAT 100
[2024-11-24 06:56] VITALS: BP 90/55; TEMP 97.4; O2SAT 98
[2024-11-24 15:38] VITALS: BP 98/55; TEMP 97.8; O2SAT 100
[2024-11-24] MEDS: TUBERCULIN PPD 5 UNITS/0.1 ML ID ONE (15:50)
[2024-11-25 06:26] VITALS: BP 88/60; TEMP 97.6; O2SAT 99
[2024-11-25 16:21] VITALS: BP 95/50; TEMP 98.2; O2SAT 100
[2024-11-25] MEDS: BENZTROPINE 0.5 MG TAB PO PRN (20:50)
[2024-11-26 06:53] VITALS: BP 90/60; TEMP 97.4; O2SAT 98
[2024-11-26] MEDS ORDERED: PPD DOCUMENTATION ENTRY MISC XX SCH (15:00)
[2024-11-26 16:00] VITALS: BP 87/53; TEMP 97.4; O2SAT 100
[2024-11-27 06:32] VITALS: BP 90/56; TEMP 97.1; O2SAT 100
[2024-11-27 15:25] VITALS: BP 90/56; TEMP 97.1; O2SAT 100
[2024-11-27 16:02] VITALS: BP 89/50; TEMP 97.7; O2SAT 100
[2024-11-27] MEDS: traZODone 100 MG TAB PO SCH (20:43)
[2024-11-28 06:31] VITALS: BP 90/54; TEMP 97.2; O2SAT 99
[2024-11-28 12:26] VITALS: BP 90/54; TEMP 97.2; O2SAT 99
[2024-11-28 15:20] VITALS: BP 100/56; TEMP 98.4; O2SAT 99
[2024-11-28 16:57] VITALS: BP 100/56; TEMP 98.4; O2SAT 99
[2024-11-29 06:22] VITALS: BP 92/58; TEMP 97.2; O2SAT 98
[2024-11-29] MEDS: DIVALPROEX 500 MG TAB PO SCH (08:50)
[2024-11-29] MEDS: PROPRANOLOL 10 MG TAB PO SCH (08:57)
[2024-11-29 15:16] VITALS: BP 94/54; TEMP 97.6; O2SAT 100
[2024-11-30 06:43] VITALS: BP 91/58; TEMP 97.6; O2SAT 98
[2024-11-30 15:02] VITALS: BP 100/57; TEMP 98.1; O2SAT 100
[2024-12-01 06:09] VITALS: BP 91/51; TEMP 97.4; O2SAT 97
[2024-12-01 08:33] VITALS: BP 102/63
[2024-12-01 16:10] VITALS: BP 112/53; TEMP 98.2; O2SAT 100
[2024-12-02 06:39] VITALS: BP 96/51; TEMP 97.6; O2SAT 99
[2024-12-02 14:52] VITALS: BP 99/58; TEMP 98.6; O2SAT 98
[2024-12-03 06:28] VITALS: BP 99/44; TEMP 97.5; O2SAT 99
[2024-12-03 18:31] VITALS: BP 99/60; TEMP 98.3
[2024-12-04 06:31] VITALS: BP 90/50; TEMP 97.6; O2SAT 94
[2024-12-04 08:34] VITALS: BP 106/59
[2024-12-04 11:07] VITALS: BP 106/59; TEMP 97.6; O2SAT 94
[2024-12-04 15:20] VITALS: BP 93/51; TEMP 97.2; O2SAT 100
[2024-12-05 06:09] VITALS: BP 100/58; TEMP 97.5; O2SAT 99
[2024-12-05 15:02] VITALS: BP 100/57; TEMP 98.4; O2SAT 100
[2024-12-06 06:31] VITALS: BP 90/60; TEMP 97.8; O2SAT 100
[2024-12-06 08:15] VITALS: BP 102/64
[2024-12-06 16:54] VITALS: BP 102/59; TEMP 97.9; O2SAT 99
[2024-12-07 06:27] VITALS: BP 97/49; TEMP 97.3; O2SAT 99
[2024-12-07 15:32] VITALS: BP 96/56; TEMP 98.5; O2SAT 99
[2024-12-08 06:30] VITALS: BP 99/52; TEMP 97; O2SAT 100
[2024-12-08 08:25] VITALS: BP 102/63
[2024-12-08] MEDS ORDERED: ARIPiprazole MONOHYDRATE 400 MG INJ (FREE PSY INPT ONLY) IM SCH (09:00)
[2024-12-09 06:37] VITALS: BP 101/56; TEMP 98.7; O2SAT 99
[2024-12-09 08:02] VITALS: BP 121/70
[2024-12-09 15:09] VITALS: BP 121/59; TEMP 98.5; O2SAT 100
[2024-12-10 06:17] VITALS: BP 117/56; TEMP 98.2; O2SAT 100
[2024-12-10 17:25] VITALS: BP 105/58; TEMP 98.3; O2SAT 100
[2024-12-11 06:39] VITALS: BP 90/52; TEMP 97.9; O2SAT 100
[2024-12-11 15:33] VITALS: BP 96/55; TEMP 97.6; O2SAT 99
[2024-12-12 06:24] VITALS: BP 105/51; TEMP 97; O2SAT 99
[2024-12-12 15:18] VITALS: BP 97/53; TEMP 98.1; O2SAT 98
[2024-12-13 06:54] VITALS: BP 104/57; TEMP 98.2; O2SAT 100
[2024-12-13 15:11] VITALS: BP 106/58; TEMP 98.9; O2SAT 97
[2024-12-14 07:10] VITALS: BP 91/55; TEMP 97.2; O2SAT 99
[2024-12-14 15:49] VITALS: BP 99/58; TEMP 98.3; O2SAT 98
[2024-12-14] MEDS: MAALOX 30 ML SUSP *UDC PO PRN (21:37)
[2024-12-15 06:30] VITALS: BP 102/56; TEMP 98.1; O2SAT 98
[2024-12-15 16:22] VITALS: BP 103/56; TEMP 98.4; O2SAT 98
[2024-12-15] MEDS ORDERED: BENZ0.5T2 PO (17:43)
[2024-12-15] MEDS ORDERED: PROP10TA56 PO (17:43)
[2024-12-15] MEDS ORDERED: DIPH50CA PO (17:43)
[2024-12-15] MEDS ORDERED: ZOLO100T PO (17:43)
[2024-12-15] MEDS ORDERED: RIZA10TA64 PO (17:43)
[2024-12-15] MEDS ORDERED: TOPA50TA8 PO (17:43)
[2024-12-15] MEDS ORDERED: DIVA-41 PO (17:43)
[2024-12-15] MEDS ORDERED: ABIL1INJ2 IM (17:43)
[2024-12-16 06:34] VITALS: BP 102/54; TEMP 97.3; O2SAT 98
[2024-12-16] MEDS ORDERED: ABIL1TAB11 PO (08:31)
[2024-12-16 08:46] VITALS: BP 101/57
[2024-12-16] MEDS ORDERED: RIZA10TA64 PO (12:02)
== END 2024-12-16 11:06 | disposition home or self-care (01) | DRG 753 ==
LOC: M ED 12:24 → M ED INP 17:28 → M PSY 21:33
PROVIDERS: ADMIT Internal Medicine; ATTEND Internal Medicine
DX: F31.64 Bipolar disorder, current episode mixed, severe, with psychotic features (principal); F41.1 Generalized anxiety disorder; F41.0 Panic disorder [episodic paroxysmal anxiety]; F43.10 Post-traumatic stress disorder, unspecified; G43.909 Migraine, unspecified, not intractable, without status migrainosus; Z79.899 Other long term (current) drug therapy; F17.290 Nicotine dependence, other tobacco product, uncomplicated

== ENCOUNTER 2025-01-01 09:50 | Emergency (ER) | payer MEDICAID, OTHER ==
[~2025-01-01] VITALS: Ht 157.5 cm; Wt 52.1 kg
[~2025-01-01 09:50] MED LIST changes: +ABIL1INJ2 IM; +BENZ0.5T2 PO; +DIPH50CA PO; +DIVA-41 PO; +PROP10TA56 PO; +RIZA10TA58 PO; +RIZA10TA64 PO; +TOPA50TA8 PO; +ZOLO100T PO
[2025-01-01] MEDS: ACETAMINOPHEN 500 MG TAB PO ONE (12:10)
[2025-01-01 12:33] LABS: BASO # 0.1 10^3/uL (0.0-0.2); BASO % 0.8 % (0.0-1.0); EOS # 0.2 10^3/uL (0.0-0.5); EOS % 3.8 % (0.0-3.0); LYMPH # 1.6 10^3/uL (1.5-5.0); LYMPH % 26.0 % (24.0-44.0); MONO # 0.6 10^3/uL (0.0-0.8); MONO % 9.7 % (2.0-8.0); NEUTROPHILS # 3.7 10^3/uL (1.5-8.5); NEUTROPHILS % 58.6 % (36.0-66.0); PLATELET COUNT, AUTOMATED 433 10^3/uL (150-450)
[2025-01-01] MEDS: NS (Normal Saline) 0.9% 1,000 ML IV ONE (12:38)
[2025-01-01 13:15] LABS: CALCIUM LEVEL 9.3 MG/DL (8.5-10.1); CARBON DIOXIDE LEVEL 28 MMOL/L (20-31); CHLORIDE LEVEL 102 MMOL/L (98-107); CREATININE FOR GFR 0.66 MG/DL (0.55-1.30); GLOMERULAR FILTRATION RATE > 90.0 (>58); MAGNESIUM LEVEL 2.0 MG/DL (1.8-2.4); POTASSIUM SERUM 4.3 MMOL/L (3.5-5.1); SODIUM LEVEL 141 MMOL/L (136-145)
[2025-01-01 13:17] LABS: HCG, SERUM QUALITATIVE NEGATIVE (NEGATIVE)
[2025-01-01 13:18] LABS: FREE T4 1.14 NG/DL (0.89-1.76)
[2025-01-01 13:51] VITALS: BP 115/64; TEMP 97.1; O2SAT 100
[2025-01-01] MEDS ORDERED: MECL-86 PO (14:10)
== END 2025-01-01 14:21 | disposition home or self-care (01) ==
LOC: M ED 09:50
DX: R55 Syncope and collapse (principal); Z86.16 Personal history of COVID-19; G43.909 Migraine, unspecified, not intractable, without status migrainosus; F41.9 Anxiety disorder, unspecified; F32.A Depression, unspecified; F17.290 Nicotine dependence, other tobacco product, uncomplicated; F12.10 Cannabis abuse, uncomplicated